=== PATIENT | male | born 1965 | race Caucasian/White ===

== ENCOUNTER 2016-07-06 06:36 | Day surgery (SDC) | payer BC ==
--- NOTE | ~2016-07-06 | EGD ---
EGD REPORT [facility] [address] [address] NAME: KISHORE ROSS : [birth year] STATUS : REG [facility]#: [id number] AGE: 50 ADM/REG DATE : 07/06/16 MR#: [id number] REPORT SERV DATE: 07/06/16 DICTATED BY: DATE: REPORT STATUS : Draft TRANSCRIBED BY: [employer] DATE: 07/06/16 [facility] Patient Name: Kishore Ross Date of : 1965 Attending MD: LINDSAY QUARLES, Procedure Date No Time: 07/06/2016 Procedure: Upper GI endoscopy Indications: Follow-up of esophageal varices with bleeding Referring MD: RAJAT ROJAS MD, PAWAN BROOKS Medicines: Monitored Anesthesia Care Complications: No immediate complications. Estimated blood loss: None. Procedure: Pre-Anesthesia Assessment: - ASA Grade Assessment: III - A patient with severe systemic disease. After obtaining informed consent, the endoscope was passed under direct vision. Throughout the procedure, the patient's blood pressure, pulse, and oxygen saturations were monitored continuously. The GIF [id number] was introduced through the mouth, and advanced to the second part of duodenum. The upper GI endoscopy was accomplished without difficulty. The patient tolerated the procedure well. Findings: Grade II varices were found in the middle third of the esophagus. Five bands were successfully placed with complete eradication, resulting in deflation of varices. There was no bleeding during the procedure. Mild portal hypertensive gastropathy was found in the gastric body. The cardia and gastric fundus were normal on retroflexion. The exam of the stomach was otherwise normal. The examined duodenum was normal. Impression: - Grade II esophageal varices. Completely eradicated. Banded. - Portal hypertensive gastropathy. - Normal examined duodenum. Recommendation: - Patient has a contact number available for emergencies. The signs and symptoms of potential delayed complications were discussed with the patient. Return to normal activities tomorrow. Written discharge instructions were provided to the patient. - Return to previous diet. - Continue present medications. - Repeat the upper endoscopy in 1 year for surveillance. EGD REPORT [facility] [address] [id number] NAME: KISHORE ROSS : [birth year] STATUS : REG [facility] [place] PAT#: [id number] AGE: 50 ADM/REG DATE : 07/06/16 MR#: [id number] REPORT SERV DATE: 07/06/16 DICTATED BY: DATE: REPORT STATUS : Draft TRANSCRIBED BY: [employer] DATE: 07/06/16 Procedure Code(s): --- Professional --- 70252, Esophagogastroduodenoscopy, flexible, transoral; with band ligation of esophageal/gastric varices Diagnosis Code(s): --- Professional --- K76.6, Portal hypertension K31.89, Other diseases of stomach and duodenum I85.01, Esophageal varices with bleeding CPT copyright 2013 [employer]. All rights reserved. The codes documented in this report are preliminary and upon fishing game warden review may be revised to meet current compliance requirements. LINDSAY WILLAM, 07/06/2016 7:41 AM Number of Addenda: 0 Note Initiated On: 07/06/2016 7:24 AM Scope Withdrawal Time 0 hours 0 minutes 0 seconds [address] [id number]
[~2016-07-06 06:36] MED LIST: AMARYL2 PO; AUG875 PO; COR40 PO; DEMA20 PO; FERROUS SULF324 MG PO; FLONASE NAS; GLUCOPHAGE1000 MG PO; GLUCOPHXR PO; GLUCOTROL5 PO; IMITREX50 PO; INSPRA50 MG PO; IRON325 MG PO; MAX25 PO; PRILO PO; SPIRO50 PO; ULTRAM50 PO
== END 2016-07-06 23:59 | disposition home or self-care (01) ==
LOC: DMU 06:36
PROVIDERS: Internal Medicine Gastroenterology
PROC: 06L34CZ Occlusion of Esophageal Vein with Extraluminal Device, Percutaneous Endoscopic Approach (ICD-10-PCS; principal; 2016-07-06 07:30)
DX: I85.01 Esophageal varices with bleeding (principal); K76.6 Portal hypertension; K31.89 Other diseases of stomach and duodenum; E66.01 Morbid (severe) obesity due to excess calories; G47.33 Obstructive sleep apnea (adult) (pediatric); E11.9 Type 2 diabetes mellitus without complications; D61.818 Other pancytopenia; Z91.030 Bee allergy status; Z98.52 Vasectomy status; Z98.890 Other specified postprocedural states
CPT/HCPCS: 82962